=== PATIENT | female | born 1965 | race Caucasian/White ===

== ENCOUNTER 2020-04-03 06:29 | Day surgery (SDC) | payer MEDICAID, SELFPAY ==
[~2020-04-03 06:29] MED LIST: TYLENOL
[2020-04-03] MEDS ORDERED: SIMETHICONE 40 MG/0.6 ML ML ONE (07:36)
[2020-04-03] MEDS: MIDAZOLAM HCL 5 MG/5 ML VIAL ONE ×4 (08:10→08:25)
[2020-04-03] MEDS: fentaNYL CITRATE/PF 100 MCG/2 ML AMP ONE ×3 (08:10→08:25)
[2020-04-03 11:42] VITALS: BP_SYST 95
== END 2020-04-03 09:30 | disposition still patient (30) ==
LOC: SDS 06:29 → SMU 06:30 → SDS 09:30
PROVIDERS: ATTEND Internal Medicine
DX: R19.4 Change in bowel habit (principal); D12.5 Benign neoplasm of sigmoid colon; K57.30 Diverticulosis of large intestine without perforation or abscess without bleeding; K52.9 Noninfective gastroenteritis and colitis, unspecified; K80.20 Calculus of gallbladder without cholecystitis without obstruction; I10 Essential (primary) hypertension; Z79.899 Other long term (current) drug therapy; Z20.828 Contact with and (suspected) exposure to other viral communicable diseases
CPT/HCPCS: 45380; 45385; 88305; 99152; G0378; J2250; J3010; J7030; U0003

== ENCOUNTER 2024-03-02 18:50 | Inpatient (IN) | payer MEDICAID, OTHER ==
[~2024-03-02] VITALS: Ht 152.4 cm; Wt 77.1 kg
[2024-03-02 18:56] VITALS: BP_SYST 163; PULSE 92; RESP 20; TEMP 98.3; O2SAT 98
[2024-03-02 20:42] LABS: BASOPHILS # (AUTO) 0.1 K/uL (0.0-0.2); BASOPHILS % (AUTO) 0.6 % (0.0-2.0); EOSINOPHILS # (AUTO) 0.3 K/uL (0.0-0.4); EOSINOPHILS % (AUTO) 2.4 % (0.0-4.0); HEMATOCRIT 41.2 % (36-48); LYMPHOCYTES # (AUTO) 4.2 K/uL (1.0-5.5); LYMPHOCYTES % (AUTO) 34.9 % (20.5-51.5); MEAN CORPUSCULAR HEMOGLOBIN 29 pg (27-31); MEAN CORPUSCULAR HGB CONC 34 % (32-36); MEAN CORPUSCULAR VOLUME 85 fL (79.0-98.0); MONOCYTES # (AUTO) 0.7 K/uL (0.0-1.0); MONOCYTES % (AUTO) 6.1 % (1.7-9.3); NEUTROPHILS # (AUTO) 6.7 K/uL (1.8-7.7); PLATELET COUNT (AUTO) 299 K/uL (130-430); RED BLOOD CELL COUNT(AUTO) 4.85 MIL/uL (4.2-6.2); RED CELL DISTRIBUTION WIDTH 13.4 % (9.0-15.0); WHITE BLOOD COUNT (AUTO) 12.1 K/uL (4.8-10.8)
[2024-03-02 21:39] LABS: BILIRUBIN,URINE NEGATIVE (NEGATIVE); BLOOD, URINE NEGATIVE (NEGATIVE); CLARITY/URINE SL CLOUDY (CLEAR); COLOR,URINE YELLOW (YELLOW); GLUCOSE,URINE NEGATIVE (NEGATIVE); KETONES,URINE TRACE (NEGATIVE); LEUKOCYTE ESTERASE ,URINE NEGATIVE (NEGATIVE); NITRITE, URINE NEGATIVE (NEGATIVE); PROTEIN URINE NEGATIVE (NEGATIVE); UROBILINOGEN,URINE 0.2 (0.2-1.0)
[2024-03-02 21:59] LABS: ALBUMIN 3.9 g/dL (3.4-4.8); BILIRUBIN,DIRECT 0.1 mg/dL (0.0-0.3); CALCIUM 9.1 mg/dL (8.4-11.0); CREATININE 0.95 mg/dL (0.55-1.30); TOTAL BILIRUBIN 0.2 mg/dL (0.0-1.0); TOTAL PROTEIN, SERUM 7.4 g/dL (6.4-8.3)
[2024-03-02] MEDS: NACL 0.9% 1,000 ML IV ONE (23:30)
[2024-03-03] VITALS (8 sets, daily range): BP systolic 111–156; PULSE 78–85; RESP 17–19; TEMP 97.1–98.3; O2SAT 93–98
[2024-03-03 00:01] LABS: INR 1.3 (0.8-1.2); PROTHROMBIN TIME 12.9 SECS (9.5-12.5)
[2024-03-03] MEDS: ONDANSETRON HCL 4 MG/2 ML VIAL IVP ONE (01:05)
[2024-03-03] MEDS: MORPHINE 4 MG INJ. 4 MG/ML VIAL IVP ONE ×2 (01:08→03:39)
[2024-03-03] MEDS ORDERED: PIPERACILLIN/TAZOBACTAM 3.375 GM/VIAL (ZOSYN) IV ONE (04:03)
[2024-03-03] MEDS ORDERED: enbrel (04:37)
[2024-03-03] MEDS ORDERED: IBUP-1969 PO (04:37)
[2024-03-03] MEDS ORDERED: lisinopril (04:37)
[2024-03-03] MEDS: PIPERACILLIN/TAZO 3.375 GM in NS 50 ML IV ONE (05:01)
[2024-03-03] MEDS ORDERED: ONDANSETRON HCL 4 MG/2 ML VIAL IVP PRN (10:45)
[2024-03-03] MEDS: LR 1,000 ML IV SCH (10:45)
[2024-03-03] MEDS ORDERED: NALOXONE HCL 0.4 MG/ML AMP (NARCAN) IVP PRN (10:45)
[2024-03-03] MEDS ORDERED: traMADol HCL HCL 50 MG TABLET (ULTRAM) PO SCH (12:00)
[2024-03-03] MEDS: BISACODYL 10 MG/SUPPOSITORY RC ONE (13:10)
[2024-03-03] MEDS: traMADol HCL HCL 50 MG TABLET (ULTRAM) PO PRN (14:56)
[2024-03-03] MEDS: PIPERACILLIN/TAZO 3.375 GM in D5W 50 ML IV SCH (14:57)
[2024-03-03] MEDS: HYDROcodone/ACETAMIN 5-325 MG TAB (NORCO/ VICODIN) PO PRN (21:03)
[2024-03-04] VITALS (7 sets, daily range): BP systolic 120–155; PULSE 71–97; RESP 17–18; TEMP 97–98.2; O2SAT 93–99
[2024-03-04 06:56] LABS: BASOPHILS % (AUTO) 0.7 % (0.0-2.0); EOSINOPHILS # (AUTO) 0.2 K/uL (0.0-0.4); EOSINOPHILS % (AUTO) 3.5 % (0.0-4.0); HEMATOCRIT 37.3 % (36-48); HEMOGLOBIN 12.4 g/dL (12.0-16.0); LYMPHOCYTES # (AUTO) 3.5 K/uL (1.0-5.5); LYMPHOCYTES % (AUTO) 49.6 % (20.5-51.5); MEAN CORPUSCULAR HEMOGLOBIN 29 pg (27-31); MEAN CORPUSCULAR HGB CONC 33 % (32-36); MEAN CORPUSCULAR VOLUME 87 fL (79.0-98.0); MONOCYTES # (AUTO) 0.4 K/uL (0.0-1.0); MONOCYTES % (AUTO) 6.1 % (1.7-9.3); NEUTROPHILS # (AUTO) 2.8 K/uL (1.8-7.7); NEUTROPHILS % (AUTO) 40.1 % (40.0-70.0); PLATELET COUNT (AUTO) 264 K/uL (130-430); RED CELL DISTRIBUTION WIDTH 13.3 % (9.0-15.0); WHITE BLOOD COUNT (AUTO) 7.1 K/uL (4.8-10.8)
[2024-03-04 08:05] LABS: ALBUMIN 3.1 g/dL (3.4-4.8); CALCIUM 8.9 mg/dL (8.4-11.0); CREATININE 0.81 mg/dL (0.55-1.30); FREE T4 (FREE THYROXINE) 1.1 ng/dl (0.8-1.5); POTASSIUM 3.9 mmol/L (3.5-5.1); THYROID STIMULATING HORMONE 1.3 uIu/mL (0.36-3.74); TOTAL BILIRUBIN 0.6 mg/dL (0.0-1.0); TOTAL PROTEIN, SERUM 6.3 g/dL (6.4-8.3)
[2024-03-04] MEDS: MAG-AL HYDROX/SIMETH 30 ML UDC PO PRN (11:29)
[2024-03-04] MEDS: BISACODYL 10 MG/SUPPOSITORY RC SCH (11:30)
[2024-03-04] MEDS: BISACODYL 10 MG/SUPPOSITORY RC ONE (16:59)
[2024-03-05 03:06] VITALS: BP_SYST 123; PULSE 78; RESP 18; TEMP 97.6; O2SAT 97
[2024-03-05 08:34] VITALS: BP_SYST 140; PULSE 69; TEMP 97.9; O2SAT 96
[2024-03-05 10:45] VITALS: O2SAT 97
[2024-03-05] MEDS: cloNIDine HCL 0.1 MG TABLET PO PRN (17:41)
[2024-03-05 20:00] VITALS: O2SAT 97
[2024-03-05 20:30] VITALS: BP_SYST 141; PULSE 75; RESP 18; TEMP 97.1; O2SAT 97
[2024-03-06] VITALS: BP_SYST 132; PULSE 63; RESP 18; TEMP 97.1; O2SAT 98
[2024-03-06 08:18] VITALS: BP_SYST 168; PULSE 65; RESP 16; TEMP 97.5; O2SAT 99
[2024-03-06 09:25] VITALS: O2SAT 99
[2024-03-06 12:28] VITALS: BP_SYST 144; PULSE 57; RESP 16; TEMP 97.3; O2SAT 99
[2024-03-06] MEDS ORDERED: AUG875 PO (13:43)
[2024-03-06] MEDS ORDERED: DOCU250C14 PO (13:43)
[2024-03-06] MEDS ORDERED: AMLO5TAB4 PO (13:45)
[2024-03-06] MEDS: DOCUSATE SODIUM 250 MG CAPSULE PO ONE (14:02)
[2024-03-06] MEDS: amLODIPine BESYLATE 5 MG TABLET PO ONE (14:02)
[2024-03-06] MEDS: ACETAMINOPHEN 325 MG TABLET PO PRN (16:18)
[2024-03-06 16:24] VITALS: BP_SYST 139; PULSE 63; RESP 16; TEMP 97.4; O2SAT 97
[2024-03-06 20:30] VITALS: BP_SYST 133; PULSE 64; RESP 18; TEMP 97.3; O2SAT 97
[2024-03-06] MEDS: DOCUSATE SODIUM 250 MG CAPSULE PO SCH (21:12)
[2024-03-07 00:10] VITALS: BP_SYST 146; PULSE 64; RESP 18; TEMP 97.9; O2SAT 96
[2024-03-07 07:30] LABS: BASOPHILS % (AUTO) 0.6 % (0.0-2.0); EOSINOPHILS # (AUTO) 0.2 K/uL (0.0-0.4); EOSINOPHILS % (AUTO) 3.5 % (0.0-4.0); HEMATOCRIT 37.4 % (36-48); HEMOGLOBIN 12.5 g/dL (12.0-16.0); LYMPHOCYTES # (AUTO) 3.7 K/uL (1.0-5.5); MEAN CORPUSCULAR HEMOGLOBIN 29 pg (27-31); MEAN CORPUSCULAR HGB CONC 33 % (32-36); MEAN CORPUSCULAR VOLUME 86 fL (79.0-98.0); MONOCYTES # (AUTO) 0.4 K/uL (0.0-1.0); MONOCYTES % (AUTO) 5.8 % (1.7-9.3); NEUTROPHILS # (AUTO) 2.6 K/uL (1.8-7.7); NEUTROPHILS % (AUTO) 37.1 % (40.0-70.0); PLATELET COUNT (AUTO) 280 K/uL (130-430); RED BLOOD CELL COUNT(AUTO) 4.36 MIL/uL (4.2-6.2); RED CELL DISTRIBUTION WIDTH 13.1 % (9.0-15.0)
[2024-03-07 07:48] LABS: ALBUMIN 3.1 g/dL (3.4-4.8); CREATININE 0.81 mg/dL (0.55-1.30); POTASSIUM 3.5 mmol/L (3.5-5.1); TOTAL BILIRUBIN 0.3 mg/dL (0.0-1.0); TOTAL PROTEIN, SERUM 6.3 g/dL (6.4-8.3)
[2024-03-07 08:15] VITALS: BP_SYST 136; PULSE 68; RESP 18; TEMP 97.7; O2SAT 97
[2024-03-07] MEDS: amLODIPine BESYLATE 5 MG TABLET PO SCH (10:57)
[2024-03-07 11:00] VITALS: BP_SYST 151; PULSE 91; RESP 16; TEMP 97.2; O2SAT 97
[2024-03-07 15:12] VITALS: BP_SYST 157; PULSE 65; RESP 16; TEMP 97.7; O2SAT 97
[2024-03-07] MEDS ORDERED: MIDODRINE HCL 5 MG TABLET (PROAMATINE) PO SCH (16:30)
[2024-03-07] MEDS ORDERED: DIGOXIN 0.5 MG/2 ML AMP IVP ONE (16:30)
[2024-03-07 19:47] VITALS: BP_SYST 150; PULSE 81; RESP 18; TEMP 98; O2SAT 95
[2024-03-07 19:48] VITALS: BP_SYST 150; O2SAT 81
[2024-03-08] MEDS ORDERED: DIGOXIN 0.5 MG/2 ML AMP IVP SCH (09:00)
== END 2024-03-07 19:10 | disposition home or self-care (01) | DRG 244 ==
LOC: SED 18:50 → SMU 03-03 05:43
PROVIDERS: ADMIT Internal Medicine; ATTEND Internal Medicine
DX: K57.32 Diverticulitis of large intestine without perforation or abscess without bleeding (principal); E44.1 Mild protein-calorie malnutrition; R65.10 Systemic inflammatory response syndrome (SIRS) of non-infectious origin without acute organ dysfunction; E66.9 Obesity, unspecified; I10 Essential (primary) hypertension; Z68.33 Body mass index [BMI] 33.0-33.9, adult; Z79.899 Other long term (current) drug therapy; Z88.8 Allergy status to other drugs, medicaments and biological substances; Z90.710 Acquired absence of both cervix and uterus
CPT/HCPCS: 36415; 74018; 80048; 80053; 80076; 81001; 81003; 83605; 83690; 84439; 84443; 85025; 85610; 85730; 87040; 87086; 96374; 99285; J2270; J2405; J2543; J7060